=== PATIENT | female | born 1945 | race Caucasian/White ===

== ENCOUNTER → 2017-02-17 | Day surgery (SDC) | payer MEDICARE, BC ==
[~2017-02-17] VITALS: Ht 165.1 cm; Wt 68.4 kg
[~2017-02-17] MED LIST: ALLEGRA180 MG PO; ALPHAGAN 05 ML/1 BOT OPHTH; CITRACAL + D31 EACH PO; DAILY MULTIPLE1 EAC1 PO; DITROPAN XL10 MG PO; ELIQUIS5 MG PO; FISH OIL 1,2001 EAC1 PO; GLUCOPHAGE500 MG PO; LOSARTAN POTAS100 MG PO; POTASSIUM99 M1 PO; PROBIOTIC1 EAC1 PO; TIMOPTIC 0.5%15 ML OPHTH; TOPROL XL 5050 MG PO; ZOCOR40 MG PO
== END | disposition disaster alternative care site (69) ==
LOC: GPOC 02-10 09:00 → GEND 06:54 → GPOC 07:00
PROC: 0DBN8ZX Excision of Sigmoid Colon, Via Natural or Artificial Opening Endoscopic, Diagnostic (ICD-10-PCS; principal; 2017-02-17)
DX: K52.9 Noninfective gastroenteritis and colitis, unspecified (principal); K58.9 Irritable bowel syndrome, unspecified; E11.9 Type 2 diabetes mellitus without complications; I10 Essential (primary) hypertension; E78.5 Hyperlipidemia, unspecified; K21.9 Gastro-esophageal reflux disease without esophagitis; Z88.0 Allergy status to penicillin; Z90.49 Acquired absence of other specified parts of digestive tract; Z90.710 Acquired absence of both cervix and uterus; Z98.890 Other specified postprocedural states
CPT/HCPCS: J2001; J7030